=== PATIENT | female | born 1965 | race Caucasian/White ===

== ENCOUNTER 2021-04-01 10:30 | Inpatient (IN) | payer OTHER ==
[~2021-04-01] VITALS: Ht 157.5 cm; Wt 113.4 kg
[2021-04-01 11:19] LABS: HEMOGLOBIN 16.2 gm/dl (12.3-15.3); RED BLOOD COUNT 4.65 M/UL (4.00-5.10); WHITE BLOOD COUNT 13.7 K/UL (4.5-11.0)
[2021-04-01 12:00] LABS: BUN/CREATININE RATIO 22 (0-10)
[2021-04-01] MEDS ORDERED: VITAMIN D21250 MCG PO (16:43)
[2021-04-01] MEDS ORDERED: PREGABALIN25 MG PO (16:44)
[2021-04-01] MEDS ORDERED: PROGESTERONE100 MG PO (16:44)
[2021-04-01] MEDS ORDERED: SPIRONOLACTONE50 MG PO (16:44)
[2021-04-01] MEDS ORDERED: MELOXICAM15 MG PO (16:45)
[2021-04-01] MEDS ORDERED: BENICAR40 MG PO (16:46)
[2021-04-01] MEDS ORDERED: LIOTHYRONINE SO5 MCG PO (16:46)
[2021-04-01] MEDS ORDERED: LIORESAL TAB 1010 MG PO (16:47)
[2021-04-01] MEDS ORDERED: FUROSEMIDE40 MG PO (16:48)
[2021-04-01] MEDS ORDERED: IMURAN TAB 50 M50 MG PO (16:48)
[2021-04-01] MEDS ORDERED: ESTRADIOL0.5 MG PO (16:49)
[2021-04-01] MEDS ORDERED: DULOXETINE HCL60 MG PO (16:49)
[2021-04-01] MEDS ORDERED: LEVOTHYROXINE50 MCG PO (16:49)
[2021-04-01] MEDS ORDERED: HYDROXYCHLOROQ200 MG PO (16:50)
[2021-04-01] MEDS ORDERED: METOPROLOL SUCC50 MG PO (16:50)
[2021-04-01] MEDS ORDERED: TRAMADOL HCL50 MG PO (16:51)
[2021-04-01] MEDS ORDERED: PHENTERMINE H37.5 M1 PO (16:51)
[2021-04-01] MEDS ORDERED: VALACYCLOVIR1000 MG PO (16:52)
[2021-04-01 17:01] LABS: ADENOVIRUS F 40/41 Not Detected (Negative); ASTROVIRUS Not Detected (Negative); CAMPYLOBACTER Not Detected (Negative); CLOSTRIDIUM DIFFICILE TOX A/B Not Detected (Negative); CRYPTOSPORIDIUM Not Detected (Negative); E.COLI 0157 Not Detected (Negative); ENTAMOEBA HISTOLYTICA Not Detected (Negative); ENTEROAGGREGATIVE E.COLI (EAEC Not Detected (Negative); ENTEROPATHOGENIC E.COLI (EPEC) Not Detected (Negative); ENTEROTOXIGENIC E.COLI (ETEC) Not Detected (Negative); GIARDIA LAMBLIA Not Detected (Negative); PLESIOMONAS SHIGELLOIDES Not Detected (Negative); ROTOVIRUS A Not Detected (Negative); SALMONELLA Not Detected (Negative); SAPOVIRUS Not Detected (Negative); SHIG/ENTEROINVAS.ECOLI (EIEC) Not Detected (Negative); SHIGA-LIK TOX.PRO.E.COLI (STEC Not Detected (Negative); VIBRIO Not Detected (Negative); VIBRIO CHOLERAE Not Detected (Negative); YERSINIA ENTEROCOLITICA Not Detected (Negative)
[2021-04-02 06:30] LABS: HEMOGLOBIN 12.1 gm/dl (12.3-15.3); RED BLOOD COUNT 3.6 M/UL (4.00-5.10); WHITE BLOOD COUNT 7.1 K/UL (4.5-11.0)
[2021-04-02 08:01] LABS: NOROVIRUS GI/GII DETECTED (Negative)
[2021-04-03 04:30] LABS: HEMOGLOBIN 12.6 gm/dl (12.3-15.3); RED BLOOD COUNT 3.73 M/UL (4.00-5.10); WHITE BLOOD COUNT 6.3 K/UL (4.5-11.0)
--- NOTE | 2021-04-03 23:30 | NUR ---
NOTIFIED LAUNDR[facility] AIDE FOR THE NEED OF AN ULTRASOUND GUIDED IV. PT HAS A MIDLINE IN HER RIGHT JUGULAR THAT WILL NO LONGER FLUSH AND IS CAUSING HER PAIN. I STUCK THE PT 3 TIMES, ALL OF WHICH WERE UNSUCCESSFUL. MEERA NEWMAN ALSO STUCK PT AND WAS UNSUCCESSFUL. LAUNDRY AIDE STATED TO ASK [facility] OR [facility] TO SEE IF THEY WERE AVAILABLE TO STICK THE PT.
--- NOTE | 2021-04-04 01:40 | NUR ---
SHAR CALLED WITH UPDATE. CURRENTLY TRYING TO FIND SOMEONE WHO IS ABLE TO DO ULTRASOUND GUIDED IV.
[2021-04-04 07:33] LABS: HEMOGLOBIN 12.8 gm/dl (12.3-15.3); RED BLOOD COUNT 3.73 M/UL (4.00-5.10); WHITE BLOOD COUNT 5.4 K/UL (4.5-11.0)
== END 2021-04-04 14:53 | disposition home or self-care (01) | DRG 392 ==
LOC: ER1 10:30 → MED SURG 4 14:34 → CDU 14:34 → MED SURG 4 16:42
PROVIDERS: Emergency Medicine; Physician Assistant; Physician Assistant Medical; ADMIT Internal Medicine
DX: A08.11 Acute gastroenteropathy due to Norwalk agent (principal); N17.9 Acute kidney failure, unspecified; Z68.42 Body mass index [BMI] 45.0-49.9, adult; E87.2 Acidosis; E86.0 Dehydration; E83.42 Hypomagnesemia; Z20.822 Contact with and (suspected) exposure to COVID-19; E87.8 Other disorders of electrolyte and fluid balance, not elsewhere classified; I95.9 Hypotension, unspecified; E66.01 Morbid (severe) obesity due to excess calories; M32.9 Systemic lupus erythematosus, unspecified; D72.829 Elevated white blood cell count, unspecified; I10 Essential (primary) hypertension
CPT/HCPCS: 36415; 71045; 80048; 80053; 81001; 82550; 82553; 83605; 83690; 83735; 84484; 85025; 85027; 87507; 93005; 96365; 96375; 99285; J0696; J1885; J2270; J2405; J2550; J3475; J3480; J7030; J7121; Q9967; U0002

== ENCOUNTER 2021-09-25 21:04 | Emergency (ER) | payer OTHER ==
[~2021-09-25 21:04] MED LIST: BENICAR40 MG PO; DULOXETINE HCL60 MG PO; ESTRADIOL0.5 MG PO; FUROSEMIDE40 MG PO; HYDROXYCHLOROQ200 MG PO; IMURAN TAB 50 M50 MG PO; LEVOTHYROXINE50 MCG PO; LIORESAL TAB 1010 MG PO; LIOTHYRONINE SO5 MCG PO; MELOXICAM15 MG PO; METOPROLOL SUCC50 MG PO; PHENTERMINE H37.5 M1 PO; PREGABALIN25 MG PO; PROGESTERONE100 MG PO; SPIRONOLACTONE50 MG PO; TRAMADOL HCL50 MG PO; VALACYCLOVIR1000 MG PO; VITAMIN D21250 MCG PO
[2021-09-25 22:07] LABS: RED BLOOD COUNT 4.13 M/UL (4.00-5.10); WHITE BLOOD COUNT 4.1 K/UL (4.5-11.0)
[2021-09-25 22:35] LABS: BUN/CREATININE RATIO 15 (0-10)
[2021-09-25] MEDS ORDERED: PROVENTIL HFA6.7 GM INH (22:57)
[2021-09-25] MEDS ORDERED: ASPIRIN CHEWABL81 MG PO (22:57)
== END 2021-09-25 23:35 | disposition home or self-care (01) ==
LOC: ER1 21:04
PROVIDERS: Physician Assistant
DX: U07.1 COVID-19 (principal); E86.0 Dehydration; I10 Essential (primary) hypertension; Z90.49 Acquired absence of other specified parts of digestive tract; Z90.710 Acquired absence of both cervix and uterus
CPT/HCPCS: 70450; 71045; 80053; 81001; 82550; 82553; 83615; 83874; 84484; 85025; 85379; 86140; 87086; 93005; 99284; U0002

== ENCOUNTER 2021-09-28 16:19 | Emergency (ER) | payer OTHER ==
[2021-09-28 17:54] LABS: HEMOGLOBIN 12.9 gm/dl (12.3-15.3); RED BLOOD COUNT 3.85 M/UL (4.00-5.10); WHITE BLOOD COUNT 3.3 K/UL (4.5-11.0)
== END 2021-09-28 20:14 | disposition home or self-care (01) ==
LOC: ER1 16:19
PROVIDERS: Physician Assistant
DX: U07.1 COVID-19 (principal)
CPT/HCPCS: 71045; 80048; 85025; 99284

== ENCOUNTER → 2021-09-28 | Outpatient (CLI) | payer OTHER ==
[~2021-09-28] VITALS: Ht 160 cm; Wt 108.9 kg
[~2021-09-28] MED LIST changes: +ASPIRIN CHEWABL81 MG PO; +PROVENTIL HFA6.7 GM INH
== END ==
LOC: EROP 12:48
DX: U07.1 COVID-19 (principal); Z23 Encounter for immunization
CPT/HCPCS: M0247; Q0247

== ENCOUNTER 2021-11-27 11:48 | Emergency (ER) | payer OTHER ==
[~2021-11-27 11:48] MED LIST changes: -DULOXETINE HCL60 MG PO; -LIOTHYRONINE SO5 MCG PO
[2021-11-27 13:12] LABS: RED BLOOD COUNT 1.77 M/UL (4.00-5.10); WHITE BLOOD COUNT 2.6 K/UL (4.5-11.0)
[2021-11-27 13:16] LABS: HEMOGLOBIN 6.2 gm/dl (12.3-15.3)
[2021-11-27] MEDS ORDERED: LIOTHYRONINE SO5 MCG PO (16:46)
[2021-11-27] MEDS ORDERED: DULOXETINE HCL60 MG PO (16:49)
[2021-11-27] MEDS ORDERED: SOOLANTRA45 GM TOP (19:43)
[2021-11-27] MEDS ORDERED: ALLOPURINOL100 MG PO (19:44)
[2021-11-27] MEDS ORDERED: IMURAN TAB 50 M50 MG PO (19:44)
[2021-11-27] MEDS ORDERED: PREGABALIN25 MG PO (19:46)
[2021-11-27] MEDS ORDERED: BUPROPION HCL150 M1 PO (19:47)
[2021-11-27] MEDS ORDERED: SPIRONOLACTONE25 MG PO (19:47)
[2021-11-27] MEDS ORDERED: HORMONE CREAM TOP (19:51)
[2021-11-27] MEDS ORDERED: COLCHICINE0.6 MG PO (19:51)
== END 2021-11-27 21:21 | disposition short-term general hospital (02) ==
LOC: ER1 11:48
PROVIDERS: Emergency Medicine
DX: U07.1 COVID-19 (principal); R55 Syncope and collapse; K92.2 Gastrointestinal hemorrhage, unspecified; D64.9 Anemia, unspecified; I12.9 Hypertensive chronic kidney disease with stage 1 through stage 4 chronic kidney disease, or unspecified chronic kidney disease; N18.9 Chronic kidney disease, unspecified
CPT/HCPCS: 36430; 70450; 71045; 80053; 82270; 82550; 82553; 83540; 83550; 83605; 84484; 85025; 86850; 86900; 86901; 86920; 93005; 99285; P9016; U0002

== ENCOUNTER → 2021-12-04 | Outpatient (CLI) | payer OTHER ==
[~2021-12-04] MED LIST changes: +ALLOPURINOL100 MG PO; +BUPROPION HCL150 M1 PO; +COLCHICINE0.6 MG PO; +DULOXETINE HCL60 MG PO; +HORMONE CREAM TOP; +LIOTHYRONINE SO5 MCG PO; +SOOLANTRA45 GM TOP; +SPIRONOLACTONE25 MG PO
[2021-12-04 16:18] LABS: HEMOGLOBIN 8.5 gm/dl (12.3-15.3); RED BLOOD COUNT 2.56 M/UL (4.00-5.10); WHITE BLOOD COUNT 2.3 K/UL (4.5-11.0)
== END ==
LOC: LAB 15:54
PROVIDERS: Physician Assistant
DX: D61.818 Other pancytopenia (principal)
CPT/HCPCS: 36415; 85025

== ENCOUNTER → 2021-12-07 | Outpatient (CLI) | payer OTHER ==
[2021-12-07 13:06] LABS: HEMOGLOBIN 8.8 gm/dl (12.3-15.3); RED BLOOD COUNT 2.64 M/UL (4.00-5.10)
[2021-12-07 13:08] LABS: WHITE BLOOD COUNT 5.1 K/UL (4.5-11.0)
== END ==
LOC: LAB 12:44
PROVIDERS: Internal Medicine Medical Oncology
DX: D61.818 Other pancytopenia (principal)
CPT/HCPCS: 36415; 85025

== ENCOUNTER → 2021-12-18 | Outpatient (CLI) | payer OTHER ==
[2021-12-18 14:02] LABS: HEMOGLOBIN 11.9 gm/dl (12.3-15.3); RED BLOOD COUNT 3.48 M/UL (4.00-5.10); WHITE BLOOD COUNT 8.2 K/UL (4.5-11.0)
== END ==
LOC: LAB 13:34
PROVIDERS: Internal Medicine Medical Oncology
DX: D61.818 Other pancytopenia (principal)
CPT/HCPCS: 36415; 80053; 85025

== ENCOUNTER 2021-12-23 09:40 | Observation (INO) | payer OTHER ==
[~2021-12-23] VITALS: Ht 160 cm; Wt 115.7 kg
[~2021-12-23 09:40] MED LIST changes: -BUPROPION HCL150 M1 PO
[2021-12-23 10:25] LABS: WHITE BLOOD COUNT 16.9 K/UL (4.5-11.0)
[2021-12-23 10:26] LABS: HEMOGLOBIN 14.2 gm/dl (12.3-15.3)
[2021-12-23 10:51] LABS: ADENOVIRUS F 40/41 Not Detected (Negative); ASTROVIRUS Not Detected (Negative); CAMPYLOBACTER Not Detected (Negative); CRYPTOSPORIDIUM Not Detected (Negative); E.COLI 0157 Not Detected (Negative); ENTAMOEBA HISTOLYTICA Not Detected (Negative); ENTEROAGGREGATIVE E.COLI (EAEC Not Detected (Negative); ENTEROPATHOGENIC E.COLI (EPEC) Not Detected (Negative); ENTEROTOXIGENIC E.COLI (ETEC) Not Detected (Negative); GIARDIA LAMBLIA Not Detected (Negative); PLESIOMONAS SHIGELLOIDES Not Detected (Negative); ROTOVIRUS A Not Detected (Negative); SALMONELLA Not Detected (Negative); SAPOVIRUS Not Detected (Negative); SHIG/ENTEROINVAS.ECOLI (EIEC) Not Detected (Negative); SHIGA-LIK TOX.PRO.E.COLI (STEC Not Detected (Negative); VIBRIO Not Detected (Negative); VIBRIO CHOLERAE Not Detected (Negative); YERSINIA ENTEROCOLITICA Not Detected (Negative)
[2021-12-23 13:40] LABS: CLOSTRIDIUM DIFFICILE TOX A/B Not Detected (Negative); NOROVIRUS GI/GII DETECTED (Negative)
[2021-12-23] MEDS ORDERED: OZEMPIC1 MG/0.71 SQ (14:12)
[2021-12-23] MEDS ORDERED: PREDNISONE10 MG PO (14:13)
[2021-12-23] MEDS ORDERED: TRAMADOL HCL50 MG PO (14:18)
[2021-12-23] MEDS ORDERED: BACLOFEN10 MG PO (14:24)
[2021-12-23] MEDS ORDERED: VITAMIN D21250 MCG PO (14:24)
--- NOTE | 2021-12-23 14:35 | NUR ---
Patient has a lactic acid level of 26.9, MD made aware no new orders at this time.
[2021-12-23] MEDS ORDERED: BUPROPION HCL150 MG PO (19:47)
[2021-12-24 03:33] LABS: HEMOGLOBIN 11.9 gm/dl (12.3-15.3)
[2021-12-24 03:48] LABS: RED BLOOD COUNT 3.43 M/UL (4.00-5.10); WHITE BLOOD COUNT 7.2 K/UL (4.5-11.0)
== END 2021-12-24 12:42 | disposition home or self-care (01) ==
LOC: ER1 09:40 → CDU 12:03 → M/S 14:13
PROVIDERS: Emergency Medicine; ADMIT Internal Medicine Infectious Disease
DX: A08.11 Acute gastroenteropathy due to Norwalk agent (principal); E86.0 Dehydration; D69.6 Thrombocytopenia, unspecified; M32.9 Systemic lupus erythematosus, unspecified; L93.0 Discoid lupus erythematosus; I12.9 Hypertensive chronic kidney disease with stage 1 through stage 4 chronic kidney disease, or unspecified chronic kidney disease; E11.22 Type 2 diabetes mellitus with diabetic chronic kidney disease; N18.9 Chronic kidney disease, unspecified; D63.1 Anemia in chronic kidney disease; E03.9 Hypothyroidism, unspecified; E87.2 Acidosis; Z86.16 Personal history of COVID-19; Z20.822 Contact with and (suspected) exposure to COVID-19; Z79.52 Long term (current) use of systemic steroids; Z79.899 Other long term (current) drug therapy; Z88.8 Allergy status to other drugs, medicaments and biological substances; Z79.82 Long term (current) use of aspirin; Z79.890 Hormone replacement therapy
CPT/HCPCS: 36415; 71045; 80053; 82550; 82553; 83605; 83690; 83735; 84484; 85014; 85018; 85025; 85027; 85610; 85730; 87040; 87507; 93005; 96374; 96375; 96376; 99285; C9113; G0378; J1170; J1200; J1956; J2270; J2405; J2543; Q9967; U0002

== ENCOUNTER → 2022-01-02 | Outpatient (CLI) | payer OTHER ==
[~2022-01-02] MED LIST changes: +BACLOFEN10 MG PO; +BUPROPION HCL150 MG PO; +OZEMPIC1 MG/0.71 SQ; +PREDNISONE10 MG PO
[2022-01-02 17:16] LABS: RED BLOOD COUNT 3.69 M/UL (4.00-5.10); WHITE BLOOD COUNT 6.2 K/UL (4.5-11.0)
== END ==
LOC: LAB 16:02
PROVIDERS: Internal Medicine Medical Oncology
DX: D61.818 Other pancytopenia (principal)
CPT/HCPCS: 36415; 80053; 85025